=== PATIENT | male | born 1970 | race American Indian/Alaskan Native ===

== ENCOUNTER 2017-07-30 06:24 | Day surgery (SDC) | payer MEDICAID, SELFPAY ==
[2017-07-30] MEDS ORDERED: NACL 0.9% 500 ML 500 ML IV SCH (07:00)
[2017-07-30 07:15] LABS: Basophils # (Auto) 0.1 K/mm3 (0.0-0.1); Basophils % (Auto) 1.1 % (0.0-1.8); Eosinophils # (Auto) 0.2 K/mm3 (0.0-0.4); Eosinophils % (Auto) 2.4 % (0.0-4.3); Hematocrit 40.3 % (35.5-45.6); Hemoglobin 13.7 gm/dl (11.8-15.2); Lymphocytes # (Auto) 1.6 K/mm3 (1.2-5.4); Lymphocytes % (Auto) 25.5 % (13.4-35.0); Mean Corpuscular HGB Conc 34 % (32-34); Mean Corpuscular Hemoglobin 30 pg (28-32); Mean Corpuscular Volume 89 fl (84-94); Monocytes # (Auto) 0.8 K/mm3 (0.0-0.8); Monocytes % (Auto) 12.1 % (0.0-7.3); Platelet Count 185 K/mm3 (140-440); Red Blood Count 4.54 M/mm3 (3.65-5.03); Red Cell Distribution Width 14.6 % (13.2-15.2)
[2017-07-30 07:36] LABS: INR 0.9 (0.87-1.13)
[2017-07-30 07:38] LABS: BUN/Creatinine Ratio 19; Blood Urea Nitrogen 23 mg/dL (9-20); Calcium 9.3 mg/dL (8.4-10.2); Hemolysis Index 13
[2017-07-30] MEDS ORDERED: ECOTRIN PO NR (08:30)
[2017-07-30] MEDS: VERSED ONE ×2 (08:42→09:03)
[2017-07-30] MEDS: HEPARIN 10,000 UNITS/10 ML ONE ×2 (08:43→09:04)
[2017-07-30] MEDS: CALAN ONE ×2 (08:43→09:04)
[2017-07-30] MEDS: SUBLIMAZE ONE ×2 (08:43→09:20)
[2017-07-30] MEDS: XYLOCAINE 2% INFILTRATI ONE ×2 (08:43→09:00)
[2017-07-30] MEDS: NITROGLYCERIN SYRINGE 3 ML ONE ×2 (08:50→09:04)
[2017-07-30] MEDS: HEPARIN/NS 5000 UNIT/500ML(CATH LAB) 1,500 ML IR ONE ×2 (08:50→08:55)
--- NOTE | 2017-07-30 10:33 | Cardiac Catherization Report ---
LEFT AND RIGHT HEART CATHETERIZATION INDICATION FOR PROCEDURE: Congestive heart failure. ORDERING PHYSICIAN: Reggie Tejeda MD PROCEDURES PERFORMED: 1. Selective left and right coronary angiography. 2. Right heart catheterization with hemodynamic measurement and oxygen saturation run. DESCRIPTION OF PROCEDURE: After obtaining written consent, the patient was draped using sterile technique. A 2% lidocaine was injected into the right wrist. A 6-Hungarian vascular sheath was inserted over a previously inserted intravenous line into the right antecubital area. A 6-Hungarian vascular sheath was inserted into the right radial artery. A 6-Hungarian JL3.5 catheter was used to selectively engage left coronary artery. A 6-Hungarian 3DRC catheter was used to selectively engage the right coronary artery. A 6-Hungarian Stock[place]-Mason catheter was used to measure right-sided hemodynamics and perform an oxygen saturation run. No complications occurred during the procedure. Hemostasis was achieved at the end of the procedure using manual pressure. SPECIMEN REMOVED: None. PHYSICIAN/PATIENT [id number] SEDATION START TIME: 9:20 a.m. PHYSICIAN/PATIENT [id number] SEDATION STOP TIME: 9:32 a.m. TOTAL SEDATION TIME: 12 minutes. FINDINGS: HEMODYNAMICS: 1. The mean pulmonary capillary wedge pressure is 20 mmHg. 2. The mean pulmonary artery pressure is 30 mmHg. 3. The pulmonary artery systolic pressure is 38 mmHg with the diastolic pressure of 23 mmHg. 4. The right ventricular systolic pressure is 41 mmHg with right ventricular end-diastolic pressure of 19 mmHg. 5. The mean right arterial pressure is 17 mmHg. 6. Aortic pressure is 162/108, LV systolic pressure is 162 mmHg, and LVEDP was measured at 30 mmHg. 7. Marisol cardiac output is 6.42 liter per minute with the cardiac index of 3.40 liters per minute per meter square. 8. Aortic saturation was 96%. 9. PA saturation is 76%. 10. Right ventricular saturation is 76%, right atrial saturation 75%. 11. Superior vena cava saturation is 77%. 12. Cardiac structures: Left ventriculogram was not performed. Gait was not performed. CORONARY ANATOMY: 1. This is a right dominant circulation. 2. Left main is angiographically normal. 3. LAD is angiographically normal. 4. Circumflex artery is angiographically normal. 5. RCA is angiographically normal. IMPRESSION: 1. Angiographically normal coronary circulation. 2. Significantly improved cardiac output and cardiac index with the cardiac index of 3.4 liters per minute per meter square and the PA saturation of 76%. 3. Mildly elevated filling pressures with pulmonary capillary wedge pressure of 20 mmHg, mild pulmonary hypertension with mean PA pressure of 30 mmHg. RECOMMENDATIONS: Continue current medical therapy. JOB# [id number] CHELO/NTS
--- NOTE | 2017-07-30 10:49 | Short Stay Summary ---
Short Stay Documentation Date of service: 07/30/17 - History H&P: obtained from office - Allergies and Medications Current Medications: Allergies Penicillins Allergy (Intermediate, Verified 07/02/13 07:50) Rash RASH PER MOTHER Home Medications Medication Instructions Recorded Confirmed Last Taken Type Aspirin [Aspirin TAB] 325 mg PO QDAY #30 tablet 07/04/13 07/30/17 07/29/17 Rx Carvedilol [Coreg] 25 mg PO QDAY 03/22/14 07/30/17 07/29/17 History Lisinopril 40 mg PO QDAY 03/22/14 07/30/17 07/29/17 History Torsemide [Demadex] 20 mg PO QDAY 03/22/14 07/30/17 07/29/17 History NIFEdipine [Nifedipine ER] 30 mg PO DAILY 07/29/17 07/30/17 07/29/17 History Active Medications Aspirin (Ecotrin) 325 mg PO ONCE NR Stop: 07/30/17 12:00 Last Admin: 07/30/17 07:00 Dose: 325 mg Sodium Chloride (Nacl 0.9% 500 Ml) 500 mls @ 50 mls/hr IV DIRECT PETER Stop: 07/30/17 16:59 - Physical exam General appearance: no acute distress Integumentary: no rash HEENT: Atraumatic Lungs: Clear to auscultation Breasts: deferred Heart: Regular rate Gastrointestinal: normal Male Genitourinary: deferred Female Genitourinary: deferred Rectal Exam: deferred Extremities: no ischemia Neurological: Normal gait - Brief post op/procedure progress note Date of procedure: 07/30/17 Pre-op diagnosis: Cardiomyopathy, CHF Post-op diagnosis: same Procedure: LHC and RHC Anesthesia: MAC Findings: See report Surgeon: JULIA MOFFETT Estimated blood loss: none Pathology: none Condition: stable - Hospital course Hospital course: Uneventful - Disposition Condition at discharge: Good Disposition: [id number]-01 TO HOME OR SELFCARE Short Stay Discharge Plan Activity: advance as tolerated Weight Bearing Status: Partial Weight Bearing (less than 20 lbs) Diet: low salt Wound: keep clean and dry Follow up with: JIMMY MAR MD [Primary Care Provider] - 7 Days
[2017-07-30 12:41] VITALS: BP 138/89
== END 2017-07-30 12:50 | disposition home or self-care (01) ==
LOC: CATHLABREC 06:24
PROVIDERS: ATTEND Internal Medicine
DX: I50.9 Heart failure, unspecified (principal); Z88.0 Allergy status to penicillin; Z79.82 Long term (current) use of aspirin
CPT/HCPCS: 36415; 80048; 85025; 85610; 85730; 93005; 93010; 93460; C1769; C1894; J1644; J2250; J3010; J7040; Q9967